=== PATIENT | male | born 1980 | race Caucasian/White ===

== ENCOUNTER 2019-11-23 09:57 | Emergency (ER) | payer OTHER ==
[~2019-11-23] VITALS: Ht 188 cm; Wt 113.4 kg
--- NOTE | 2019-11-23 10:01 | NUR ---
Patient ambulated to bed 2. RN evaluating patient at bedside.
[2019-11-23 10:05] VITALS: BP 113/62
--- NOTE | 2019-11-23 10:27 | NUR ---
39 Y/O M C/O SOB X 4 DAYS. PT STATES AUNT IN HOUSEHOLD HAS THE PNEUMONIA, HE FEELS HE MAY WELL. PT PUT ON 02 2L NC, ON 98%. PT STATES HE HAS PAIN 8/10 WITH INSPIRATION/EXPIRATION. PT LUNG SOUNDS CLEAR. NON PRODUCTIVE COUGH. PT HAS NOT TAKEN MEDICATION AT HOME FOR SYMPTOMS. PT POSITIONED HIGH FOWLERS, RESTING COMFORTABLY, GRANDMOTHER AT BEDSIDE.
--- NOTE | 2019-11-23 11:10 | NUR ---
LAB AT BEDSIDE DRAWING ORDERED LABS.
[2019-11-23 11:28] LABS: BASOPHILS % (AUTO) 0.5 % (0.0-2.0); EOSINOPHILS % (AUTO) 1.1 % (0.0-4.0); HEMATOCRIT 43.7 % (36-52); HEMOGLOBIN 14.9 g/dL (12.0-18.0); LYMPHOCYTES # (AUTO) 0.6 K/uL (2.0-11.5); LYMPHOCYTES % (AUTO) 14.1 % (20.5-51.1); MEAN CORPUSCULAR HEMOGLOBIN 31 pg (27-31); MEAN CORPUSCULAR HGB CONC 34 g/dL (33-37); MEAN CORPUSCULAR VOLUME 91.1 fL (80-94); MONOCYTES # (AUTO) 0.4 K/uL (0.8-1.0); MONOCYTES % (AUTO) 10.8 % (1.7-9.3); NEUTROPHILS # (AUTO) 2.9 K/uL (1.8-7.7); NEUTROPHILS % (AUTO) 73.5 % (42.2-75.2); PLATELET COUNT (AUTO) 152 K/uL (140-450); RED BLOOD CELL COUNT(AUTO) 4.79 MIL/uL (4.20-6.10); RED CELL DISTRIBUTION WIDTH 13.4 % (11.6-13.7)
[2019-11-23 11:51] LABS: ALBUMIN 3.3 g/dL (3.4-5.0); ANION GAP 13.7 (8-16); CARBON DIOXIDE 27.2 mmol/L (21-32); CREATININE 0.9 mg/dL (0.7-1.3); POTASSIUM 3.9 mmol/L (3.5-5.1); TOTAL BILIRUBIN 0.4 mg/dL (0.0-1.0)
--- NOTE | 2019-11-23 12:10 | NUR ---
Dr. Barnes is evaluating the patient at bedside.
[2019-11-23] MEDS ORDERED: KETOROLAC 60 MG/2 ML VIAL IM ONE (12:15)
[2019-11-23 12:50] VITALS: BP 113/62
--- NOTE | 2019-11-23 12:52 | NUR ---
Patient discharged with v/s stable. Written and verbal after care instructions given and explained. Patient alert, oriented and verbalized understanding of instructions. Ambulatory with steady gait. All questions addressed prior to discharge. ID band removed. Patient advised to follow up with PMD. Rx of MOTRIN, KEFLEX, PREDNISONE given. Patient educated on indication of medication including possible reaction and side effects. Opportunity to ask questions provided and answered.
== END 2019-11-23 12:52 | disposition home or self-care (01) ==
LOC: MED 09:57
DX: J11.1 Influenza due to unidentified influenza virus with other respiratory manifestations (principal); R07.89 Other chest pain; R11.2 Nausea with vomiting, unspecified; M79.10 Myalgia, unspecified site
CPT/HCPCS: 36415; 71045; 80053; 85025; 87804; 96372; 99284; J1885; Q0092